=== PATIENT | female | born 1995 | race Caucasian/White ===

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

== ENCOUNTER → 2017-12-21 | Outpatient (CLI) | payer OTHER | LOC: M WUC 12:35 | DX: M79.671 Pain in right foot (principal) | CPT/HCPCS: 73630 ==